=== PATIENT | female | born 1950 | race Caucasian/White ===

== ENCOUNTER 2017-06-13 13:57 | Emergency (ER) | payer MEDICARE, OTHER ==
[2017-06-13] MEDS: ACETAMINOPHEN 325 MG TAB PO (14:27)
[2017-06-13] MEDS: NICARDipine HCL 30 MG CAPSULE PO (14:29)
== END 2017-06-13 15:47 | disposition home or self-care (01) ==
LOC: E/R 13:57
DX: I10 Essential (primary) hypertension (principal); R40.2142 Coma scale, eyes open, spontaneous, at arrival to emergency department; R40.2252 Coma scale, best verbal response, oriented, at arrival to emergency department; R40.2362 Coma scale, best motor response, obeys commands, at arrival to emergency department
CPT/HCPCS: 93005; 99283-25